=== PATIENT | male | born 1975 | race Caucasian/White ===

== ENCOUNTER 2022-02-20 18:42 | Emergency (ER) | payer MEDICAID, OTHER ==
--- NOTE | 2022-02-20 19:07 | ED Physician Documentation ---
PD HPI DYSPNEA - Stated complaint Stated Complaint: WET CHOUGH/FEVER - Chief complaint Chief Complaint: Resp - History obtained from History obtained from: Patient - Additional information Additional information: Sick since yesterday with productive cough and low-grade fever at home. COVID test at home was negative. Son is also sick and presents with him for evaluation. Review of Systems Constitutional: reports: Fever. denies: Chills Nose: denies: Rhinorrhea / runny nose, Congestion Throat: denies: Sore throat Respiratory: reports: Cough. denies: Dyspnea PD PAST MEDICAL HISTORY - Allergies Allergies/Adverse Reactions: Allergies Allergy/AdvReac Type Severity Reaction Status Date / Time codeine Allergy Hives Verified 02/20/22 18:55 erythromycin base Allergy Hives Verified 02/20/22 18:55 PD ED PE NORMAL - Vitals Vital signs reviewed: Yes - General General: Alert and oriented X 3 (Occasional coughing) - HEENT HEENT: Ears normal, Pharynx benign - Neck Neck: Supple, no meningeal sign, No bony TTP - Cardiac Cardiac: RRR, No murmur - Respiratory Respiratory: No respiratory distress, Clear bilaterally - Abdomen Abdomen: Non tender - Derm Derm: No rash - Neuro Neuro: Alert and oriented X 3, Normal speech Results - Vitals Vitals: Vital Signs - 24 hr 02/20/22 02/20/22 18:53 20:20 Temperature 36.0 C L 36.2 C L Heart Rate 87 88 Respiratory 16 16 Rate Blood Pressure 147/93 H 145/88 H O2 Saturation 97 98 Oxygen O2 Source Room air - Rads (name of study) 2 view chest x-ray is unremarkable Radiology: EMP read contemporaneously PD MEDICAL DECISION MAKING - ED course ED course: 47-year-old gentleman with viral URI. Continued conservative treatment at home was recommended. Chest x-ray normal. Vital signs and exam are unremarkable. Departure - Departure Disposition: 01 Home, Self Care Clinical Impression: Viral URI with cough Condition: Good Record reviewed to determine appropriate education?: Yes Instructions: ED Viral Syndrome Comments: Continue current medications for symptoms. Return for new or worsening symptoms. Follow-up with your doctor within the week if not better. Discharge Date/Time: 02/20/22 20:20
--- NOTE | 2022-02-20 19:59 | XRAY Report ---
PROCEDURE: Chest 2 View X-Ray INDICATIONS: cough TECHNIQUE: 2 view(s) of the chest. COMPARISON: None. FINDINGS: Surgical changes and devices: None. Lungs and pleura: No pleural effusions or pneumothorax. Lungs are clear. Mediastinum: Mediastinal contours are normal. Heart size is normal. Bones and chest wall: No suspicious bony abnormalities. Soft tissues appear unremarkable. IMPRESSION: No acute cardiopulmonary disease process. Reviewed by: Fartun De Los Santos MD, PhD on 02/20/2022 7:58 PM PDT Approved by: Fartun De Los Santos MD, PhD on 02/20/2022 7:58 PM PDT Station ID: [id number]
[2022-02-20 20:20] VITALS: BP 145/88
== END 2022-02-20 20:20 | disposition home or self-care (01) ==
LOC: ED 18:42
DX: J06.9 Acute upper respiratory infection, unspecified (principal)
CPT/HCPCS: 99282; 99283